=== PATIENT | female | born 1970 | race Caucasian/White ===

== ENCOUNTER 2018-05-01 12:56 | Emergency (ER) | payer MEDICARE, MEDICAID, SELFPAY ==
--- NOTE | 2018-05-01 12:53 | DI.RAD.S_ITS ---
PROCEDURE: XR CHEST 1V INDICATIONS: chest pain TECHNIQUE: One view of the chest was acquired. COMPARISON: None. FINDINGS: Surgical changes and devices: None. Lungs and pleura: No pleural effusions or pneumothorax. Lungs are clear. Mediastinum: Mediastinal contours appear normal. Heart size is normal. Bones and chest wall: No suspicious bony lesions. Overlying soft tissues appear unremarkable. IMPRESSION: Normal for age, source of current symptoms is not seen. Dictated by: Alexander Harding M.D. on 05/01/2018 at 13:32 Approved by: Alexander Harding M.D. on 05/01/2018 at 13:32
[2018-05-01 12:55] VITALS: BP 139/77; PULSE 66; RESP 16; TEMP 36.7; O2SAT 100
--- NOTE | 2018-05-01 12:55 | ED.CHESTPAIN ---
HPI - Chest Pain <ALPHONSO Valdez - Last Filed: 05/01/18 22:01> General Chief Complaint: Chest Pain Stated Complaint: L Flank Pain / Chest Pain Time Seen by Provider: 05/01/18 12:56 Source: patient Mode of arrival: EMS Limitations: no limitations History of Present Illness HPI narrative: 47-year-old female with history of astrocytic glioma as a nonsmoker here for complaint of having multiple complaints over the past several days. She reports that she has had chest pain that started yesterday. She also reports having a left-sided back and flank pain over the past week. She reports that the pain radiates down into her left buttocks and thigh. She is able to ambulate. She denies any trauma to the area. She does state that she has started yoga over the past week. she reports increased pain with movement to the lower back. She denies any stressors relievers of her pain to her chest. positive p.o. intake. No nausea vomiting. No diaphoresis. She denies any shortness of breath she denies any swelling to her lower extremities. MD complaint: chest pain Related Data Home Medications Medication Instructions Recorded Confirmed epinephrine [EpiPen 2-Eliseo] 0.3 ml IM PRN PRN 05/01/18 05/01/18 levetiracetam 250 mg PO BID 05/01/18 05/01/18 trazodone 50 - 100 mg PO BEDTIME PRN 05/01/18 05/01/18 Previous Rx's Medication Instructions Recorded cyclobenzaprine 10 mg PO TID PRN #15 tab 05/01/18 prednisone 40 mg PO DAILY #8 tab 05/01/18 Allergies Allergy/AdvReac Type Severity Reaction Status Date / Time No Known Drug Allergies Allergy Verified 05/01/18 13:45 Review of Systems <ALPHONSO Valdez - Last Filed: 05/01/18 22:01> Constitutional Denies chills, Denies fatigue, Denies fever(s), Denies lethargy and Denies weakness Eyes Denies change in vision, Denies eye discharge, Denies irritation and Denies loss of vision ENT Ears, Nose, Mouth, and Throat: Denies change in voice, Denies neck pain and Denies sore throat Cardiovascular Reports chest pain, Denies dyspnea and Denies dyspnea on exertion Respiratory Denies cough, Denies dyspnea, Denies dyspnea on exertion and Denies wheezing Gastrointestinal Gastrointestinal: Reports abdominal pain Genitourinary Denies hematuria, Reports flank pain, Denies urinary incontinence and Denies urinary urgency Musculoskeletal Reports back pain and Denies neck pain Neurologic Denies confusion, Denies loss of vision and Denies weakness Psychiatric Denies anxiety, Denies confusion, Denies depression, Denies homicidal ideation and Denies suicidal ideation Endocrine Denies fatigue and Denies flushing Hematologic/Lymphatic Denies easy bruising Allergic/Immunologic Denies wheezing Exam <ALPHONSO Valdez - Last Filed: 05/01/18 22:01> Initial Vital Signs Initial Vital Signs: Vital Signs Temperature 98.0 F 05/01/18 12:55 Pulse Rate 66 05/01/18 12:55 Respiratory Rate 16 05/01/18 12:55 Blood Pressure 139/77 05/01/18 12:55 Pulse Oximetry 100 05/01/18 12:55 Const General: cooperative and well developed Nutritional Appearance: well nourished Orientation: alert, awake, oriented x3 and not confused [facility] Mouth: oral mucosae normal and moist mucous membranes Eyes Conjunctivae: conjunctivae normal Sclera: sclerae normal Pupils: PERRL EOM: EOM intact bilaterally Resp Effort & Inspection: normal respiratory effort, able to speak in complete sentences, no respiratory distress and no use of accessory muscles Auscultation: clear to auscultation bilaterally, no rales, no rhonchi and no wheezes Cardio Rate: regular rate Rhythm: regular rhythm Heart Sounds: no click, no gallops, no murmurs and no rubs Pulses: normal peripheral pulses GI Inspection: non-distended Palpation: soft, no hepatosplenomegaly, No guarding, No pulsatile mass and No tender Auscultation: normal bowel sounds General: No CVA tenderness Back/Spine/Pelvis Thoracic/Lumbar Spine: thoracic and lumbar spine normal to inspection and paraspinal tenderness Skin General: no rashes or lesions noted, No jaundice and No petechiae Neuro General: alert, oriented x3, gait normal and no focal motor deficits Speech: speech normal <Ruben Stringer DO - Last Filed: 05/05/18 07:13> Initial Vital Signs Initial Vital Signs: Vital Signs Temperature 98.0 F 05/01/18 12:55 Pulse Rate 66 05/01/18 12:55 Respiratory Rate 16 05/01/18 12:55 Blood Pressure 139/77 05/01/18 12:55 Pulse Oximetry 100 05/01/18 12:55 Scores <ALPHONSO Valdez - Last Filed: 05/01/18 22:01> HEART Score Heart Score history: Slightly Suspicious Heart Score EKG: Normal Heart Score Age: 45-64 years old Heart Score risk factors: No known risk factors Heart Score troponin: < or = to normal limit Heart Score Total: 1 PERC Score Age greater than or equal to 50 years: No Heart rate greater than or equal to 100 bpm: No Room Air O2 Sat less than 95%: No Unilateral leg swelling: No Recent trauma or surgery: No Hemoptysis: No Prior PE or DVT: No Hormone Use: No Total PERC Score: 0 Course <ALPHONSO Valdez - Last Filed: 05/01/18 22:01> Orders Ordered: ED Orders 05/01/18 13:22 EKG-12 Lead Stat 05/01/18 13:30 US periph venous low extrem lt Stat 05/01/18 13:32 Complete Blood Count AUTO DIFF Stat Comprehensive Metabolic Panel Stat Lipase Stat Partial Thromboplastin Time Stat Prothrombin Time INR Stat Troponin & CK Cardiac Panel Stat Vital Signs - 8 hr 05/01/18 15:21 05/01/18 15:52 Temperature 98.4 F Pulse Rate 60 66 Respiratory Rate 17 18 Blood Pressure 107/60 Blood Pressure [Right Arm] 107/60 Pulse Oximetry 100 100 <Ruben Stringer DO - Last Filed: 05/05/18 07:13> Orders Ordered: ED Orders 05/01/18 13:22 EKG-12 Lead Stat 05/01/18 13:30 periph venous low extrem lt Stat 05/01/18 13:32 Complete Blood Count AUTO DIFF Stat Comprehensive Metabolic Panel Stat Lipase Stat Partial Thromboplastin Time Stat Prothrombin Time INR Stat Troponin & CK Cardiac Panel Stat Vital Signs - 8 hr 05/01/18 15:21 05/01/18 15:52 Temperature 98.4 F Pulse Rate 60 66 Respiratory Rate 17 18 Blood Pressure 107/60 Blood Pressure [Right Arm] 107/60 Pulse Oximetry 100 100 MDM - Chest Pain <ALPHONSO Valdez Last Filed: 05/01/18 22:01> Lab Data Result diagrams: 05/01/18 13:32 05/01/18 13:32 Lab Results 05/01/18 05/01/18 05/01/18 Range/Units 13:32 13:32 13:32 WBC 5.9 (4.5-11.0) X10^3/uL RBC 4.43 (4.0-5.2) X10^6/uL Hgb 13.9 (12.0-16.0) g/dL Hct 40.4 (36-46) % MCV 91.3 (80-100) fL MCH 31.5 (26-34) PG MCHC 34.5 (30-36) % RDW 13.2 (11.6-14.8) % Plt Count 211 (150-400) X10^3/uL Neut % (Auto) 54.4 (50-75) % Lymph % (Auto) 36.4 (25-40) % [place] % (Auto) 7.7 (3-14) % Eos % (Auto) 0.8 L (2-4) % Baso % (Auto) 0.7 (0-2) % Neut # (Auto) 3200 (2350-5994) /uL PT 11.8 (10.1-12.7) SECONDS INR 1.1 (0.9-1.3) APTT 32 (26.4-36.2) SECONDS Sodium 144 (137-145) mmol/L Potassium 4.0 (3.4-5.1) mmol/L Chloride 106 (98-107) mmol/L Carbon Dioxide 29 (22-32) mmol/L BUN 10 (7-17) mg/dL Creatinine 0.50 L (0.52-1.04) mg/dL Estimated GFR > 60.0 (>60) mL/min BUN/Creatinine Ratio 20.0 (6-22) Glucose 97 (70-100) mg/dL Calcium 9.2 (8.4-10.2) mg/dL Total Bilirubin 0.4 (0.2-1.3) mg/dL AST 21 (14-36) IU/L ALT 26 (9-52) IU/L Alkaline Phosphatase 102 (38-126) U/L Total Creatine Kinase 34 (30-135) U/L CK-MB (CK-2) TNP CK-MB (CK-2) Rel Index TNP Troponin I < 0.012 (0.01-0.034) ng/mL Total Protein 6.7 (6.3-8.2) g/dL Albumin 4.2 (3.5-5.0) g/dL Globulin 2.5 (1.7-4.1) g/dL Albumin/Globulin Ratio 1.7 (1.0-2.8) Lipase 306 H (23-300) U/L Point of Care Testing Test Results Negative Urine Dip Bedside Urine Glucose Negative Bedside Urine Bilirubin - Negative Bedside Urine Ketone - Negative Urine Specific [place] 1.010 Bedside Urine Occult Blood - Negative Bedside Urine pH 6.0 Bedside Urine Protein - Negative Bedside Urine Urobilinogen - Negative Bedside Urine Nitrite - Negative Bedside Urine Leukocytes - Negative Esterase ECG Data Interpretation: EKG shows a normal sinus rhythm with no ST elevation or depression. No ectopy. Ventricular rate of 57. Pr interval 162. QRS duration is 78. QT of 415. MDM Narrative Medical decision making narrative: CBC Chem panel were obtained were unremarkable. Urinalysis was negative for and also urinary tract infection. Ultrasound of the left lower extremity was obtained and was negative for blood clot. Heart score was 1. Perc score was negative. 24 hr post symptoms started chest pain and troponin was negative. Chest x-ray was negative for any acute findings. Signs and symptoms presents as muscle skeletal pain along with sciatica into the left buttocks and thigh area. She is treated with cyclobenzaprine a muscle relaxer. She is also given a short course of prednisone for anti-inflammatory effects. [id number] ibuprofen as needed for discomfort. Follow up with primary care provider in the next few days. For any worsening symptoms return to the emergency room. If continued chest pain issues suggest further evaluation such as stress test/ echocardiogram. <Ruben Stringer, DO - Last Filed: 05/05/18 07:13> Lab Data Lab Results 05/01/18 05/01/18 05/01/18 Range/Units 13:32 13:32 13:32 WBC 5.9 (4.5-11.0) X10^3/uL RBC 4.43 (4.0-5.2) X10^6/uL Hgb 13.9 (12.0-16.0) g/dL Hct 40.4 (36-46) % MCV 91.3 (80-100) fL MCH 31.5 (26-34) PG MCHC 34.5 (30-36) % RDW 13.2 (11.6-14.8) % Plt Count 211 (150-400) X10^3/uL Neut % (Auto) 54.4 (50-75) % Lymph % (Auto) 36.4 (25-40) % [place] % (Auto) 7.7 (3-14) % Eos % (Auto) 0.8 L (2-4) % Baso % (Auto) 0.7 (0-2) % Neut # (Auto) 3200 (5551-4396) /uL PT 11.8 (10.1-12.7) SECONDS INR 1.1 (0.9-1.3) APTT 32 (26.4-36.2) SECONDS Sodium 144 (137-145) mmol/L Potassium 4.0 (3.4-5.1) mmol/L Chloride 106 (98-107) mmol/L Carbon Dioxide 29 (22-32) mmol/L BUN 10 (7-17) mg/dL Creatinine 0.50 L (0.52-1.04) mg/dL Estimated GFR > 60.0 (>60) mL/min BUN/Creatinine Ratio 20.0 (6-22) Glucose 97 (70-100) mg/dL Calcium 9.2 (8.4-10.2) mg/dL Total Bilirubin 0.4 (0.2-1.3) mg/dL AST 21 (14-36) IU/L ALT 26 (9-52) IU/L Alkaline Phosphatase 102 (38-126) U/L Total Creatine Kinase 34 (30-135) U/L CK-MB (CK-2) TNP CK-MB (CK-2) Rel Index TNP Troponin I < 0.012 (0.01-0.034) ng/mL Total Protein 6.7 (6.3-8.2) g/dL Albumin 4.2 (3.5-5.0) g/dL Globulin 2.5 (1.7-4.1) g/dL Albumin/Globulin Ratio 1.7 (1.0-2.8) Lipase 306 H (23-300) U/L Point of Care Testing Test Results Negative Urine Dip Bedside Urine Glucose Negative Bedside Urine Bilirubin - Negative Bedside Urine Ketone - Negative Urine Specific [place] 1.010 Bedside Urine Occult Blood - Negative Bedside Urine pH 6.0 Bedside Urine Protein - Negative Bedside Urine Urobilinogen - Negative Bedside Urine Nitrite - Negative Bedside Urine Leukocytes - Negative Esterase Discharge Plan Departure Patient Disposition: Home Clinical Impression: Back pain, Chest pain Discharge Date/Time: 05/01/18 15:54 Interventions: ED Discharge Assessment Last Done: 05/01/18 15:52 Instructions: DI for Low Back Pain, DI for Atypical Chest Pain Activity Restrictions/Additional Instructions: laboratory results, EKG and imaging today were unremarkable. Signs and symptoms presents as muscle skeletal pain to both the back and also to the chest wall. Pain radiating to the left thigh presents as sciatica secondary to the lower back pain. You are prescribed cyclobenzaprine a muscle relaxer use as directed. You are also prescribed a steroid called prednisone for a short course to help with anti-inflammatory effects. Rest area. Follow up with primary care provider the next few days. Use [id number] ibuprofen as needed for any discomfort. Prescriptions: New cyclobenzaprine 10 mg tablet 10 mg PO TID PRN (Reason: muscle spasm) Qty: 15 RF: 0 prednisone 20 mg tablet 40 mg PO DAILY Qty: 8 RF: 0 No Action trazodone 50 mg tablet 50 - 100 mg PO BEDTIME PRN (Reason: Insomnia) RF: 0 levetiracetam 500 mg tablet 250 mg PO BID RF: 0 epinephrine [EpiPen 2-Eliseo] 0.3 mg/0.3 mL auto-injector 0.3 ml IM PRN PRN (Reason: Allergic Reaction) RF: 0 Referrals: [facility] [Provider Group] <Ruben Stringer DO - Last Filed: 05/05/18 07:13> [facility] [place] Attestation: I was available for consultation during this patient's emergency department encounter
--- NOTE | 2018-05-01 13:30 | DI.US.S_ITS ---
PROCEDURE: US PERIPH VENOUS LOW EXTREM LT INDICATIONS: pain into the right thigh area with chest pain TECHNIQUE: Real-time imaging, as well as color and pulse Doppler interrogation, were performed of the lower extremity deep veins from the inguinal ligament to the popliteal fossa. COMPARISON: None. FINDINGS: The deep veins are normally compressible, and free of intraluminal thrombus. Color and pulse Doppler demonstrate normal phasic intraluminal flow. There is normal augmentation response to distal compression maneuver. IMPRESSION: No deep vein thrombosis of the left lower extremity. Dictated by: Eugenia Rao M.D. on 05/01/2018 at 15:40 Approved by: Eugenia Rao M.D. on 05/01/2018 at 15:40
[2018-05-01 13:43] LABS: Add Manual Diff / Slide Review NO; Basophils Percent Auto 0.7 % (0-2); Eosinophils Percent Auto 0.8 % (2-4); Hematocrit 40.4 % (36-46); Hemoglobin 13.9 g/dL (12.0-16.0); Lymphocytes Percent Auto 36.4 % (25-40); Mean Corpuscular HGB Conc 34.5 % (30-36); Mean Corpuscular Hemoglobin 31.5 PG (26-34); Mean Corpuscular Volume 91.3 fL (80-100); Monocytes Percent Auto 7.7 % (3-14); Neutrophils Absolute Auto 3200 /uL (3000-5900); Neutrophils Percent Auto 54.4 % (50-75); Platelet Count 211 X10^3/uL (150-400); Red Blood Cell Count 4.43 X10^6/uL (4.0-5.2); Red Cell Distribution Width 13.2 % (11.6-14.8); White Blood Cell Count 5.9 X10^3/uL (4.5-11.0)
[2018-05-01 13:54] LABS: INR 1.1 (0.9-1.3); Prothrombin Time 11.8 SECONDS (10.1-12.7)
[2018-05-01 13:57] LABS: PTT Partial Thromboplastin Tim 32 SECONDS (26.4-36.2)
[2018-05-01 13:59] LABS: Alanine Aminotransferase 26 IU/L (9-52); Albumin 4.2 g/dL (3.5-5.0); Albumin Globulin Ratio 1.7 (1.0-2.8); Alkaline Phosphatase 102 U/L (38-126); Aspartate Aminotransferase 21 IU/L (14-36); Bilirubin Total 0.4 mg/dL (0.2-1.3); Blood Urea Nitrogen 10 mg/dL (7-17); Calcium 9.2 mg/dL (8.4-10.2); Carbon Dioxide 29 mmol/L (22-32); Chloride 106 mmol/L (98-107); Creatine Kinase 34 U/L (30-135); Estimated Glomerular Filt Rate > 60.0 mL/min (>60); Globulin 2.5 g/dL (1.7-4.1); Glucose 97 mg/dL (70-100); HEMOLYSIS < 15 (0-50); Lipase 306 U/L (23-300); Sodium 144 mmol/L (137-145); Total Protein 6.7 g/dL (6.3-8.2)
[2018-05-01 14:12] LABS: Troponin I < 0.012 ng/mL (0.01-0.034)
[2018-05-01 15:21] VITALS: BP 107/60; PULSE 60; RESP 17; O2SAT 100
[2018-05-01 15:52] VITALS: BP 107/60; PULSE 66; RESP 18; TEMP 36.9; O2SAT 100
== END 2018-05-01 15:54 | disposition home or self-care (01) ==
PROVIDERS: Emergency Medicine; Emergency Provider Nurse Practitioner Family
DX: M54.9 Dorsalgia, unspecified (principal); R07.89 Other chest pain
CPT/HCPCS: 71045; 80053; 81003; 81025; 82550; 83690; 84484; 85025; 85610; 85730; 93005; 93041; 93971; 99283; 99285